=== PATIENT | female | born 1940 | race Caucasian/White ===

== ENCOUNTER → 2016-06-15 | Outpatient (CLI) | payer OTHER | LOC: ULTRA 02:33 | DX: C50.912 Malignant neoplasm of unspecified site of left female breast (principal) ==

== ENCOUNTER → 2017-06-07 | Outpatient (CLI) | payer OTHER | LOC: RAD 03:54 | DX: Z12.31 Encounter for screening mammogram for malignant neoplasm of breast (principal) ==

== ENCOUNTER → 2019-05-07 | Outpatient (CLI) | payer OTHER | LOC: RAD 04-23 10:17 | DX: Z12.31 Encounter for screening mammogram for malignant neoplasm of breast (principal) ==

== ENCOUNTER → 2019-05-14 | Outpatient (CLI) | payer OTHER | LOC: BC 13:59 | DX: R92.1 Mammographic calcification found on diagnostic imaging of breast (principal) ==

== ENCOUNTER → 2019-11-21 | Outpatient (CLI) | payer OTHER | LOC: BC 09:10 | PROVIDERS: ATTEND Internal Medicine Hematology & Oncology | DX: R92.1 Mammographic calcification found on diagnostic imaging of breast (principal) ==

== ENCOUNTER → 2020-05-26 | Outpatient (CLI) | payer OTHER | LOC: BC 05-25 15:05 | PROVIDERS: ATTEND Internal Medicine Hematology & Oncology | DX: R92.1 Mammographic calcification found on diagnostic imaging of breast (principal); Z86.000 Personal history of in-situ neoplasm of breast ==

== ENCOUNTER → 2021-05-31 | Outpatient (CLI) | payer OTHER | LOC: BC 11:16 | PROVIDERS: ATTEND Internal Medicine | DX: Z12.31 Encounter for screening mammogram for malignant neoplasm of breast (principal); N64.89 Other specified disorders of breast ==